=== PATIENT | female | born 1935 | race Caucasian/White ===

== ENCOUNTER 2017-09-28 21:39 | Emergency (ER) | payer OTHER ==
[2017-09-28 21:54] VITALS: PULSE 84; RESP 19; TEMP 98.2; O2SAT 94
[2017-09-28 21:55] VITALS: BP 177/90
[2017-09-28] MEDS ORDERED: AMOXICILLIN 250 MG PREPACK#4 BTL TAKEHOME ONE (22:09)
[2017-09-28] MEDS ORDERED: OXYCODONE/APAP 5/325MG PREPACK#4 BTL TAKEHOME ONE (22:10)
--- NOTE | 2017-09-28 22:12 | EDPHY ---
H & P Stated Complaint: L jaw pain, dental hx, Time Seen by Provider: 09/28/17 22:07 HPI/ROS: HPI: This is a 82-year-old female who presents with Chief Complaint: Left jaw pain Location: Left jaw; TMJ joint Quality: Achiness Duration: 1-2 days Signs and Symptoms: No bleeding, no radiation, no numbness, no weakness, no tingling, no incontinence, no decreased range of motion, no swelling, + pain Timing: Waxes and wane Severity: 11/09 Context: Patient has a history of wearing partial implant, excessive dental problems presents with complaints of left TMJ pain that is worsened when she chews for the last 1-2 days. She reports that approximately 1-2 weeks ago she had a toothache on her right bottom tooth that her dentist prescribed amoxicillin for that she took for 5-7 days. She was told at that time that she did not have to have the tooth pulled but after further questioning remembers that she was chewing all of her food on the left side. She denies any chest pain/shortness of breath/radiation/nausea/vomiting/diaphoresis. She took Advil with moderate relief of symptoms. She called her dentist this morning but was unable to get an appointment until tomorrow. Modifying Factors: See above Comment: ROS: see HPI Constitutional: No fever, no chills, no weight loss Eyes: No blurred vision Respiratory: No shortness of breath, no cough Cardiovascular: No chest pain Gastrointestinal: No nausea, no vomiting no diarrhea Genitourinary: No dysuria Extremities: No myalgias Neurologic: No weakness, no numbness Skin: No rashes Hematologic: No bruising, no bleeding MEDICAL/SURGICAL/SOCIAL HISTORY: Medical/surgical history: APPY, HYPOTHYROID, OSTEOPETROSIS, ARTHRITIS Social history: Retired. CONSTITUTIONAL: Extremely well-appearing elderly white female who is talkative , awake and alert, no obvious distress HEENT: Atraumatic and normocephalic. Reproducible tenderness in her left TMJ joint especially with opening her mouth 3 finger width. No malocclusion. No cervical lymphadenopathy. TMs are clear bilaterally. Teeth show no fluctuance or erythematous gingiva. NECK: supple, no midline tenderness, flexion 45 degrees, extension 45 degrees, right and left lateral flexion 45 degrees. No meningismus. Cardiovascular: Normal S1/S2, regular rate, regular rhythm, without murmur rub or gallop. PULMONARY/CHEST: Symmetrical and nontender. no crepitus. Clear to auscultation bilaterally. Good air movement. No accessory muscle usage. ABDOMEN: Soft, nondistended, nontender, no ecchymosis. PELVIC: no pain with rocking; bilateral hips flexion 125 degrees, extension 30 degrees, with no pain internal rotation and no pain external rotation. BACK: No midline tenderness, no paraspinous spasm, deep tendon reflexes 2/2, no pain with straight leg raise EXTREMITIES: 2/2 pulses, strength 5/5, DIP/PIP/MCP flexion/extension intact with good light touch sensation. no deformities, no clubbing, no cyanosis or edema. NEUROLOGICAL: no focal neuro deficits. GCS 15. Light touch sensation intact. SKIN: Warm and dry, no erythema. no rash. Good capillary refill. Source: Patient Exam Limitations: No limitations - Personal History Current Tetanus Diphtheria and Acellular Pertussis (TDAP): Unsure - Medical/Surgical History Hx Asthma: No Hx Chronic Respiratory Disease: No Hx Diabetes: No Hx Cardiac Disease: No Hx Renal Disease: No Hx Cirrhosis: No Hx Alcoholism: No Hx HIV/AIDS: No Hx Splenectomy or Spleen Trauma: No Other PMH: APPY, HYPOTHYROID, OSTIOPEROSIS, ARTHRITIS - Social History Smoking Status: Former smoker Constitutional: Initial Vital Signs Temperature (C) 36.8 C 09/28/17 21:51 Heart Rate 84 09/28/17 21:51 Respiratory Rate 19 09/28/17 21:51 O2 Sat (%) 94 09/28/17 21:51 O2 Delivery Mode Room Air Allergies/Adverse Reactions: No Known Allergies Allergy (Unverified 09/28/17 21:47) Home Medications: Medication Instructions Recorded Alendronate Sodium [Fosamax 70 MG 70 mg PO HURT@0700 06/02/15 (*)] Ergocalciferol [Vitamin D2 (*)] 50,000 i.unit PO HURT 06/02/15 Herbals/Supplements -Info Only 1 ea PO DAILY 06/02/15 Levothyroxine [Synthroid 112 mcg 112 mcg PO MOTUWETHFRSA@06 06/02/15 (*)] Liothyronine Sodium [Cytomel 5 mcg 5 mcg PO MOTUWETHFRSA 06/02/15 (*)] Genoa-3 Fatty Acids [Fish Oil 1000 1,000 mg PO DAILY 06/02/15 mg (*)] Amoxicillin Trihydrate 500 mg PO Q12H #14 cap 09/28/17 [Amoxicillin] Medical Decision Making ED Course/Re-evaluation: Amoxicillin and Percocet given No signs of neurovascular compromise/tenting of skin/compartment syndrome/ extremities and joints examined above and below area of concern and are neurovascularly intact/otitis media/cervical lymphadenitis/facial cellulitis/ periapical abscess. Low yield for cardiac process. Patient is to follow up with her dentist tomorrow as already planned. This patient was seen under the supervision of my secondary supervising physician. I evaluated care for this patient independently. Differential Diagnosis: Differential diagnosis includes but is not limited to Departure - Departure Disposition: Home, Routine, Self-Care Clinical Impression: TMJ pain dysfunction syndrome, Odontalgia Condition: Good Instructions: Hydrocodone/Acetaminophen (By mouth), Amoxicillin (By mouth), Temporomandibular Disorder (ED) Additional Instructions: Take Tylenol 650 mg every 4 hours and/or Ibuprofen 600 mg every 8 hours with food as needed for pain. Use Percocet every 6 hours as needed for severe/break through pain. Do not use Tylenol and Percocet concomitantly. Apply ice for 30 minutes at a time; 2-3 times per day for the next 1-2 days. Call your dentist tomorrow for follow-up within the next 3-5 days. Referrals: Radha Manning MD [Primary Care Provider] - As per Instructions Prescriptions: Amoxicillin Trihydrate [Amoxicillin] 500 mg PO Q12H #14 cap
[2017-09-28] MEDS ORDERED: HYDROCOD/APAP 5/325 PREPACK#6 BTL TAKEHOME ONE (22:38)
== END 2017-09-28 22:48 | disposition home or self-care (01) ==
DX: M26.622 Arthralgia of left temporomandibular joint (principal); Z87.891 Personal history of nicotine dependence

== ENCOUNTER → 2017-10-25 | Outpatient (CLI) | payer OTHER | LOC: FIMAGING 10:24 | PROVIDERS: ATTEND Family Medicine | DX: Z13.820 Encounter for screening for osteoporosis (principal); M81.8 Other osteoporosis without current pathological fracture ==